=== PATIENT | male | born 1975 | race Caucasian/White ===

== ENCOUNTER 2017-06-18 11:34 | Emergency (ER) | payer SELFPAY ==
[2017-06-18] MEDS ORDERED: fentaNYL PF 100 MCG/2 ML VIAL IV PRN (11:45)
[2017-06-18] MEDS ORDERED: LIDOCAINE 2% 20 ML VIAL. IJ ONE (12:00)
[2017-06-18] MEDS ORDERED: DIPHTH,PERTUSS(ACELL),TET TOX 0.5 ML DISP.SYRIN. VAX IM ONE (12:00)
[2017-06-18] MEDS ORDERED: IV NORMAL SALINE 1,000ML 1,000 ML IV ONE (12:00)
--- NOTE | 2017-06-18 12:29 | RAD ---
Three-view study of the left wrist History: Laceration injury with a edge grinder machine wheel. Pain. Findings: No acute fracture or dislocation or osteolytic process is seen. There is a laceration injury of the anterior lateral aspect of the left wrist. Multiple punctate radiopaque foreign bodies are seen here. IMPRESSION: No acute fracture. Laceration injury of the lateral anterior soft tissues of the left wrist with multiple punctate radiopaque foreign bodies.
[2017-06-18] MEDS ORDERED: HYDR-971 PO (13:09)
--- NOTE | 2017-06-18 13:09 | PHYS DOC ---
Past History Past Medical History: Other Past Surgical History: No Surgical History Alcohol Use: None Drug Use: None Adult General Chief Complaint Chief Complaint: LACERATION/AVULSION HPI HPI Patient is a 41-year-old male brought to the ED by a friend with injuries to the left wrist and right thumb. The patient was getting ready to work with a finish grinder when the finish grinder flew apart in the grinding wheel lacerated his left wrist and something lacerated his right thumb, he is not sure what. Denies other injury. Denies facial injury. The patient has been holding pressure and has not had too much blood loss. Tetanus is not up-to-date. Review of Systems Review of Systems Eyes: Denies eye pain or injury HENT: Denies facial pain or injury Musculoskeletal: Denies injury other than that described Integument: Denies rash or skin lesions [] Current Medications Current Medications Current Medications Medications (Trade) Dose Ordered Sig/Gregor Start Time Stop Time Status Last Admin Dose Admin Diphtheria/ Tetanus/Acell Pertussis (Boostrix) 0.5 ml ONCE ONCE 06/18/17 12:00 06/18/17 12:01 DC 06/18/17 11:55 0.5 ML Fentanyl Citrate (Fentanyl 2ml Vial) 50 mcg PRN Q15MIN PRN 06/18/17 11:45 06/19/17 11:44 06/18/17 11:55 50 MCG Lidocaine HCl 20 ml 1X ONCE 06/18/17 12:00 06/18/17 12:01 DC Sodium Chloride 1,000 ml @ 1,000 mls/hr 1X ONCE 06/18/17 12:00 06/18/17 12:59 DC 06/18/17 11:55 1,000 MLS/HR Allergies Allergies Allergies Coded Allergies Type Severity Reaction Last Updated Verified No Known Drug Allergies 05/16/15 No Physical Exam Physical Exam Constitutional: Well developed, well nourished, no acute distress, non-toxic appearance. Alert, ambulatory, mentating normally. HENT: Normocephalic, atraumatic, bilateral external ears normal, nose normal. [ ] Eyes: conjunctiva normal, no discharge. [] Neck: Normal range of motion, no stridor. [] Skin: Warm, dry, no erythema, no rash. [] Extremities: Right hand: There is a partial skin avulsion on the radial aspect of the thumbnail where a relatively superficial/thin flap of skin is partially avulsed. The thumbnail is not involved. There is no significant amount of skin missing. This is a superficial injury. Left arm: There are linear lacerations present over the ventral aspect of the wrist. The appeared to, with some contused and abraded and burned tissue. The left hand is not injured. There is numbness over the left thumb and index finger on the palmar aspect. Vascular is intact with capillary refill less than 2 seconds of each digit. The strength is normal to opposition of thumb and index as well as thumb and fifth finger. Range of motion of the hand is normal. Neurologic: Alert and oriented X 3, normal motor function, normal sensory function, no focal deficits noted. [] EKG EKG [] Radiology/Procedures Radiology/Procedures Three-view x-ray of the left wrist read by me. There are some small radiopaque foreign bodies in the location of the lacerations but no bony injury or other acute abnormality. [] Procedure: Right thumb laceration 1.5 cm The skin avulsion/laceration of the right thumb was cleaned and inspected. The avulsed skin is too thin to sew. The laceration was repaired with skin adhesive and Steri-Strips. Good result was achieved. Procedure: Left wrist lacerations 3 cm and 4 cm (total 7 cm in length) The area was prepped with Betadine and anesthetized with lidocaine 2% plain. The lacerations were irrigated well with saline using a splash shield. Small foreign bodies that were visible were removed by irrigation and manually. The lacerations were explored. I do not see involvement of any deeper tissues. The lacerations were debrided to moderate extent. Contused and devitalized skin and subcutaneous fat was removed. The edges were sharpened and cleaned up. The 2 lacerations were repaired with a total of 6 sutures, vertical mattress, 3-0 nylon. One small area will have to heal by secondary intention but relatively good result was achieved. Lacerations were bandaged by ED nurse. Course & Med Decision Making Course & Med Decision Making Pertinent Labs and Imaging studies reviewed. (See chart for details) 41-year-old male presents with a small injury to the right thumb and a larger injury to the left ventral wrist sustained just prior to arrival with a finish grinder that came apart. He has no other injuries. He appears stable on presentation but is drenched with sweat and a little pale. IV bolus of normal saline was given, IV pain meds, tetanus booster. After the patient rested and prior to lidocaine injection, he stated that his numbness in his hand was gone except for just a little patch on the thenar eminence. I believe most of his numbness was likely from applying pressure after the injury. See procedure note for right thumb and left wrist repairs. Patient tolerated well and felt much better after the IV fluids. See instructions for plan. [] Dragon Disclaimer Dragon Disclaimer This chart was dictated in whole or in part using Voice Recognition software in a busy, high-work load, and often noisy Emergency Department environment. It may contain unintended and wholly unrecognized errors or omissions. Departure Departure: Impression: Primary Impression: Laceration of left wrist Additional Impression: Laceration of right thumb Disposition: HOME, SELF-CARE Condition: STABLE Referrals: PCP,NO (PCP) Patient Instructions: Laceration Care, Adult, [id number] Additional Instructions: For the right thumb, keep it mostly dry but you may wet briefly to wash your hands. Don't put any ointment or anything else on it. Try to let the Steri- Strips and glue stay on as long as they well. If they start to peel off before it looks healed, reinforced with more Steri-Strips or a Band-Aid. For the left wrist, leave the bandage on for 36 hours, then may remove and clean gently, re-bandage with a nonstick dressing with a wrap over it. I prefer that you do not use tape, adhesive, Band-Aid etc. on the skin, but wrap something around like we did. For pain, ibuprofen 800 mg every 6-8 hours. Take it regularly for 2 or 3 days then as needed. For more severe pain, hydrocodone as prescribed. This is an opiate, not while driving, it will be sedating and constipating. You may combine hydrocodone and ibuprofen. Sutures should be removed in about 14 days. You may return here for that. Scripts Hydrocodone Bit/Acetaminophen (NORCO 5-325 TABLET) 1 Each Tablet 1-2 TAB PO Q4-6HRS, #15 TAB Prov: MYRA SUMMERS MD 06/18/17 Problem Qualifiers MYRA SUMMERS MD Jun 18, 2017 13:09
[2017-06-18 13:15] VITALS: BP 133/71
== END 2017-06-18 13:20 | disposition home or self-care (01) ==
LOC: ER 11:34
DX: S61.512A Laceration without foreign body of left wrist, initial encounter (principal); S61.011A Laceration without foreign body of right thumb without damage to nail, initial encounter; W31.89XA Contact with other specified machinery, initial encounter; Y93.89 Activity, other specified; Y92.89 Other specified places as the place of occurrence of the external cause; Y99.8 Other external cause status
CPT/HCPCS: 12001; 12032; 73110; 90471; 90715; 96361; 96374; 99284; J3010; J7030

== ENCOUNTER 2017-06-30 13:06 | Emergency (ER) | payer SELFPAY ==
[~2017-06-30] VITALS: Ht 177.8 cm; Wt 95.3 kg
[~2017-06-30 13:06] MED LIST: HYDR-971 PO
[2017-06-30 13:29] VITALS: BP 151/83
--- NOTE | 2017-06-30 14:43 | PHYS DOC ---
Past History Past Medical History: No Pertinent History Past Surgical History: No Surgical History Alcohol Use: None Drug Use: None Adult General Chief Complaint Chief Complaint: SUTURE/STAPLE REMOVAL HPI HPI 41-year-old male presenting to the emergency department today after sustaining a laceration that was repaired in our emergency department previously here for possible suture removal. Onset 1-2 weeks. Location left hand. Duration constant. No alleviating or exacerbating factors present. Review of systems is negative for fevers chills cough shortness of breath chest pain. All other review of systems is negative unless otherwise noted in history of present illness. ED course 41-year-old male presenting to the emergency department for suture removal. On inspection of the patient's wound is healing appropriately without any evidence of cellulitis. Palpable pulse distally neurovascularly intact. 2 second cap refill. Otherwise remainder the extremities are unremarkable. I ordered the nurse to remove the sutures and for the patient to follow-up with his primary care physician in the next 3 or 4 days for wound reevaluation. The patient was then discharged home in stable condition to follow up with their primary care physician over the next 2-3 days. They were to return if their symptoms worsened or if they were concerned for any reason. [id number] discharge instructions and return precautions were given. Patient's questions were answered to their satisfaction. Patient is comfortable plan. Review of Systems Review of Systems SEE ABOVE Allergies Allergies Allergies Coded Allergies Type Severity Reaction Last Updated Verified No Known Drug Allergies 05/16/15 No Physical Exam Physical Exam Constitutional: Well developed, well nourished, no acute distress, non-toxic appearance. [] HENT: Normocephalic, atraumatic, bilateral external ears normal, oropharynx moist, no oral exudates, nose normal. [] Eyes: PERRLA, EOMI, conjunctiva normal, no discharge. [] Neck: Normal range of motion, no tenderness, supple, no stridor. [] Cardiovascular:Heart rate regular rhythm, no murmur [] Lungs & Thorax: Bilateral breath sounds clear to auscultation [] Abdomen: Bowel sounds normal, soft, no tenderness, no masses, no pulsatile masses. [] Skin: Warm, dry, no erythema, no rash. [] Back: No tenderness, no CVA tenderness. [] Extremities: see above Neurologic: Alert and oriented X 3, normal motor function, normal sensory function, no focal deficits noted. [] Psychologic: Affect normal, judgement normal, mood normal. [] Current Patient Data Vital Signs Vital Signs Date Time Temp Pulse Resp B/P (MAP) Pulse Ox O2 Delivery O2 Flow Rate FiO2 06/30/17 13:29 97.9 71 20 96 Room Air EKG EKG [] Radiology/Procedures Radiology/Procedures [] Course & Med Decision Making Course & Med Decision Making Pertinent Labs and Imaging studies reviewed. (See chart for details) [] Dragon Disclaimer Dragon Disclaimer This chart was dictated in whole or in part using Voice Recognition software in a busy, high-work load, and often noisy Emergency Department environment. It may contain unintended and wholly unrecognized errors or omissions. Departure Departure: Impression: Primary Impression: Encounter for wound re-check Disposition: 01 HOME, SELF-CARE Condition: STABLE MELYSSA SINGH MD Jun 30, 2017 14:43
== END 2017-06-30 13:36 | disposition home or self-care (01) ==
LOC: ER 13:06
DX: S61.412D Laceration without foreign body of left hand, subsequent encounter (principal); X58.XXXD Exposure to other specified factors, subsequent encounter; Y99.8 Other external cause status; Y92.89 Other specified places as the place of occurrence of the external cause
CPT/HCPCS: 99281